=== PATIENT | male | born 1935 | race African-American/Black ===

== ENCOUNTER 2016-04-19 11:34 | Outpatient (CLI) | payer MEDICARE ==
[2016-04-19 12:18] LABS: Bacteria,Urine 1+ /HPF (Negative); Bilirubin,Urine NEG (Negative); Blood,Urine SM (Negative); Ketones,Urine NEG (Negative); Leukocyte Esterase,Urine NEG (Negative); Mucus,Urine FEW /HPF; Nitrite,Urine NEG (Negative); Urobilinogen,Urine < 2.0 mg/dL (<2.0)
[2016-04-19 12:24] LABS: Protein,Urine >500 mg/dL (Negative)
[2016-04-19 12:27] LABS: Hematocrit 34.1 % (35.5-45.6); Hemoglobin 11.6 gm/dl (11.8-15.2); Mean Corpuscular HGB Conc 34 % (32-34); Mean Corpuscular Hemoglobin 31 pg (28-32); Mean Corpuscular Volume 92 fl (84-94); Platelet Count 223 K/mm3 (140-440); Red Blood Count 3.73 M/mm3 (3.65-5.03); Red Cell Distribution Width 14.3 % (13.2-15.2); White Blood Count 4.9 K/mm3 (4.5-11.0)
[2016-04-19 12:36] LABS: Calcium 9.1 mg/dL (8.4-10.2); Chloride 104.9 mmol/L (98-107); Magnesium 1.8 mg/dL (1.7-2.3); Phosphorous 3.8 mg/dL (2.5-4.5); Potassium 4.2 mmol/L (3.6-5.0)
[2016-04-20 23:41] LABS: Gamma Globulin 0.5 g/dL (0.8-1.7); Interpretation Consistent with (())
== END 2016-04-19 11:35 | disposition home or self-care (01) ==
LOC: LAB 11:34
PROVIDERS: ATTEND Internal Medicine Nephrology
DX: N18.3 Chronic kidney disease, stage 3 (moderate) (principal)
CPT/HCPCS: 36415; 80048; 80074; 81001; 83735; 83970; 84100; 84165; 85027

== ENCOUNTER 2016-08-11 10:01 | Outpatient (CLI) | payer MEDICARE ==
[2016-08-11 10:41] LABS: BUN/Creatinine Ratio 19.33; Chloride 105.6 mmol/L (98-107); Potassium 4.4 mmol/L (3.6-5.0)
[2016-08-11 10:47] LABS: Bilirubin,Urine NEG (Negative); Blood,Urine SM (Negative); Ketones,Urine NEG (Negative); Leukocyte Esterase,Urine NEG (Negative); Mucus,Urine FEW /HPF; Nitrite,Urine NEG (Negative); Urobilinogen,Urine < 2.0 mg/dL (<2.0)
== END 2016-08-11 10:02 | disposition home or self-care (01) ==
LOC: LAB 10:01
PROVIDERS: ATTEND Internal Medicine Nephrology
DX: N18.3 Chronic kidney disease, stage 3 (moderate) (principal)
CPT/HCPCS: 36415; 80048; 81001; 82043; 83036

== ENCOUNTER 2017-06-07 10:17 | Outpatient (CLI) | payer MEDICARE | END 2017-06-07 10:18 | disposition home or self-care (01) | LOC: LAB 10:17 | PROVIDERS: ATTEND Internal Medicine Nephrology | DX: N18.3 Chronic kidney disease, stage 3 (moderate) (principal) | CPT/HCPCS: 36415; 80048 ==

== ENCOUNTER 2017-06-27 10:44 | Outpatient (CLI) | payer MEDICARE ==
[2017-06-27 11:09] LABS: Bilirubin,Urine NEG (Negative); Blood,Urine SM (Negative); Color,Urine Yellow (Yellow); Urobilinogen,Urine < 2.0 mg/dL (<2.0)
[2017-06-27 11:12] LABS: Protein,Urine >500 mg/dL (Negative)
[2017-06-27 13:49] LABS: Creatinine,Urine 111.6 mg/dL (0.1-20.0)
[2017-06-27 14:10] LABS: Microalbumin/Creatinine Ratio 4634.4 ug/mg
== END 2017-06-27 10:45 | disposition home or self-care (01) ==
LOC: LAB 10:44
PROVIDERS: ATTEND Internal Medicine Nephrology
DX: N18.3 Chronic kidney disease, stage 3 (moderate) (principal); Z79.899 Other long term (current) drug therapy
CPT/HCPCS: 36415; 80048; 81001; 82043; 83036

== ENCOUNTER → 2017-11-16 | Outpatient (CLI) | payer MEDICARE | END | disposition home or self-care (01) | LOC: LAB 16:45 | DX: R94.4 Abnormal results of kidney function studies (principal); N18.3 Chronic kidney disease, stage 3 (moderate); Z79.899 Other long term (current) drug therapy | CPT/HCPCS: 87086 ==

== ENCOUNTER → 2017-11-17 | Outpatient (CLI) | payer MEDICARE ==
--- NOTE | 2017-11-17 15:23 | Cat Scan Report ---
CT CHEST WITHOUT CONTRAST: HISTORY: Neoplasm of uncertain behavior, unspecified B-cell lymphoma. COMPARISON: Head CT dated 11/14/14. TECHNIQUE: Helical CT in 1.25mm intervals without IV contrast. Sagittal and coronal reformatted images. FINDINGS: Thyroid gland: Normal. Tracheobronchial tree: Normal. Esophagus: Normal. Heart: Normal size. Mild to moderate three-vessel coronary artery calcifications are noted. Pericardium: Normal. Mediastinum: No mediastinal adenopathy or mass. Lung Lopez: Mild chronic interstitial changes are noted bilaterally. No evidence for a suspicious nodule, infiltrate or interstitial lung disease. Pleural Spaces: Normal. Musculoskeletal: Mild thoracic spondylosis. No evidence for fracture or bony lesion. IMPRESSION: Unremarkable CT chest without contrast. No evidence for disease metastasis or recurrence.
--- NOTE | 2017-11-17 15:31 | Cat Scan Report ---
CT ABDOMEN PELVIS WITHOUT CONTRAST: HISTORY: Neoplasm of uncertain behavior, lymphoma intrapelvic. COMPARISON: PET/CT dated 11/14/14. TECHNIQUE: Helical CT in 1.25mm intervals without IV contrast. Sagittal and coronal reconstructions. FINDINGS: Liver: Normal. Biliary system: Multiple small calcified gallstones are identified. No biliary dilatation or inflammation. Pancreas: Normal. Spleen: Normal. Kidneys/ureters/bladder: Multiple bilateral large renal cysts are identified which appear stable in size and number. The largest cyst measures 11.4 cm at the superior pole of the left kidney. A 3 mm calyceal stone is identified in the superior right kidney. No ureteral stones or hydronephrosis. The bladder is partially empty. A 1 cm diverticulum is noted along the right lateral wall. The prostate gland appears enlarged with a prominent bulge on the bladder base which is unchanged. Adrenal glands: Normal. Aorta: Moderate diffuse calcifications. No aneurysm. Intestines: The gastric wall appears moderately thickened although there is no oral contrast present in the stomach. This finding is unchanged since the previous PET/CT. There are numerous diverticula in the distal colon. Otherwise, the bowel loops are within normal limits. No evidence for large mass, inflammation or obstruction. Appendix: Not confidently identified, correlate with surgical history. Pelvic viscera: Normal. Ascites: None. Adenopathy: No pathologic adenopathy is identified in the abdomen or pelvis. Musculoskeletal: Moderate lumbar spondylosis. No fracture or suspicious bony lesion. IMPRESSION: No evidence for disease metastasis or recurrence. No significant change since the PET/CT in 2014.
== END | disposition home or self-care (01) ==
LOC: CT 06:54
PROVIDERS: ATTEND Internal Medicine Hematology & Oncology
DX: D40.10 Neoplasm of uncertain behavior of unspecified testis (principal); C85.16 Unspecified B-cell lymphoma, intrapelvic lymph nodes; M47.894 Other spondylosis, thoracic region; I25.10 Atherosclerotic heart disease of native coronary artery without angina pectoris
CPT/HCPCS: 71250; 74176